=== PATIENT | female | born 1950 | race Caucasian/White ===

== ENCOUNTER 2022-10-13 06:48 | Day surgery (SDC) | payer MEDICARE, OTHER ==
[2022-10-10 15:58] LABS: BASOPHILS # (AUTO) 0.1 X10'3 (0-0.2); BASOPHILS % (AUTO) 1.1 % (0-1); EOSINOPHILS % (AUTO) 0.7 % (0-6); LYMPHOCYTES # (AUTO) 2.5 X10'3 (1.1-4.8); LYMPHOCYTES % (AUTO) 37.4 % (21-51); MEAN CORPUSCULAR HEMOGLOBIN 34.8 PG (27.0-31.0); MEAN CORPUSCULAR HGB CONC 34.6 g/dL (33.0-36.5); MEAN CORPUSCULAR VOLUME 100.5 FL (78-98); MEAN PLATELET VOLUME 7.5 FL (7.4-10.4); MONOCYTES # (AUTO) 0.6 X10'3 (0-0.9); MONOCYTES % (AUTO) 9.6 % (2-12); NEUTROPHILS # (AUTO) 3.5 X10'3 (1.8-7.7); NEUTROPHILS % (AUTO) 51.2 % (42-75); PRE OP HEMATOCRIT 31.9 % (35.0-45.0); PRE OP PLATELET COUNT 332 X10'3 (140-440); RED BLOOD COUNT 3.18 X10'6 (4.20-5.60)
[2022-10-10 16:19] LABS: ALBUMIN 3.7 G/DL (3.4-5.0); ALBUMIN/GLOBULIN RATIO 1.1 (1.1-1.5); ALKALINE PHOSPHATASE 47 IU/L (46-116); BLOOD UREA NITROGEN 14 MG/DL (7-18); BUN/CREATININE RATIO 21.2 (10.0-20.0); CALCIUM 9.2 MG/DL (8.5-10.1); CHLORIDE 93 MMOL/L (99-107); CREATININE 0.66 MG/DL (0.40-0.90); PRE OP ALT 22 U/L (30-65); PRE OP ANION GAP 11 (8-16); PRE OP AST 24 U/L (10-37); PRE OP BILIRUB, TOTAL 0.4 MG/DL (0.0-1.0); PRE OP GLUCOSE 99 MG/DL (70-104); PRE OP POTASSIUM 4.1 MMOL/L (3.4-5.1); TOTAL CARBON DIOXIDE 24.1 MMOL/L (24-32); TOTAL PROTEIN 7.2 G/DL (6.4-8.2); eGFR 88 ML/MIN
[2022-10-10 16:23] LABS: PRE OP SODIUM 128 MMOL/L (135-145)
[~2022-10-13] VITALS: Ht 167.6 cm; Wt 74.0 kg
[2022-10-13] VITALS (7 sets, daily range): BP systolic 131–149; BP diastolic 80–86; PULSE 58–68; RESP 11–16; TEMP 98.1; O2SAT 95–99
[~2022-10-13 06:48] MED LIST: ALPR0.5T8 PO; CHOL10005 PO; CYAN-104 PO; DIPH-735 PO; ESTR1TAB28 PO; FLUT1BLS4 INH; HYDR12.55 PO; KRIL1CAP19 PO; LEVO50TA8 PO; LOSA100T58 PO; MAGN400C PO; MELA5TAB12 PO; OMEP40CA21 PO; PARO20TA6 PO; VITA400T10 PO; cefazolin 2gm/D5W 100mL 100 ML IV ONE; famotidine 20mg tablet PO ONE; ringers solution, lacted 1,000 ML IV SCH; ringers solution, lacted 500 ML IV SCH
[2022-10-13] MEDS ORDERED: labetalol 20mg/4ml (5mg/ml) syringe IV PRN (07:20)
[2022-10-13] MEDS ORDERED: morphine 4 MG/ML inj SYRINge IV PRN (07:20)
[2022-10-13] MEDS ORDERED: ondansetron/PF 4mg/2ml inj IV PRN (07:20)
[2022-10-13] MEDS ORDERED: ringers solution, lacted 1,000 ML IV SCH (07:20)
[2022-10-13] MEDS ORDERED: morphine 2 MG/ML inj. syringe IV PRN (07:20)
[2022-10-13] MEDS ORDERED: LIDOcaine 0.5% (5mg/ml) 50ml vial ONE (09:35)
[2022-10-13] MEDS ORDERED: BUPIVAcaine/PF 2.5 mg/ml (0.25%) 30ml vial ONE (09:35)
[2022-10-13] MEDS ORDERED: midazolam 1 mg/ML 2ml injection ONE (09:35)
[2022-10-13] MEDS ORDERED: fentaNYL/PF 50MCG/1 ML 2ML syringe ONE (09:35)
[2022-10-13] MEDS ORDERED: sevoflurane 250ml liquid IH ONE (09:44)
[2022-10-13] MEDS ORDERED: BUPIVAcaine/PF 2.5 mg/ml (0.25%) 30ml vial IJ ONE (10:10)
--- NOTE | 2022-10-13 10:13 | NUR ---
Received from OR via [facility] TO [facility] 7, accompanied by Anesthesiologist FLETCHER and report given by Anesthesiolgist. PATIENT PRESENTS ON RA WITH SPO2 AT 97%. LR RUNNING THRU PIV IN LEFT WRIST. DRESSING TO RIGHT WRIST IS CDI. ICE APPLIED. PATIENT DOES NOT C/O PAIN OR NAUSEA AT THIS TIME. WILL CONTINUE TO ASSESS.
--- NOTE | 2022-10-13 11:13 | NUR ---
PATIENT STABLE FOR D/C PER MD ORDERS. ALL D/C PPWK WAS REV'D WITH PATIENT. ALL QUESTIONS, COMMENTS, AND CONCERNS WERE ANSWERED AT THIS TIME. EDUCATION ON ICE, ELEVATION, AND MOVING OF FINGERS. SHE VERBALIZED UNDERSTANDING OF ALL. PT WAS ABLE TO AMBULATE SAFELY TO BATHROOM AND BACK WITH MINIMAL ASSISTANCE. DRESSING TO RIGHT WRIST, CDI. PATIENT WAS TAKEN OUT IN W/C TO PRIVATE VEHICLE WHERE FAMILY WAS WAITING. TRANSFERRED TO VEHICLE WITHOUT INCIDENT.
== END 2022-10-13 11:13 | disposition home or self-care (01) ==
LOC: PAS 06:48
PROVIDERS: ATTEND Orthopaedic Surgery Hand Surgery
DX: G56.01 Carpal tunnel syndrome, right upper limb (principal); M18.0 Bilateral primary osteoarthritis of first carpometacarpal joints; J44.9 Chronic obstructive pulmonary disease, unspecified; I10 Essential (primary) hypertension; F41.9 Anxiety disorder, unspecified; F32.A Depression, unspecified; E03.9 Hypothyroidism, unspecified; K21.9 Gastro-esophageal reflux disease without esophagitis; E87.1 Hypo-osmolality and hyponatremia; G44.009 Cluster headache syndrome, unspecified, not intractable; Z88.8 Allergy status to other drugs, medicaments and biological substances; Z90.710 Acquired absence of both cervix and uterus; Z79.899 Other long term (current) drug therapy; Z98.890 Other specified postprocedural states; Z87.891 Personal history of nicotine dependence; F12.90 Cannabis use, unspecified, uncomplicated; Z72.89 Other problems related to lifestyle
CPT/HCPCS: 36415; 64721; 80053; 82948; 85025; 93005; J0690; J2250; J3010; J3490; J7030; J7120; Z7506; Z7512; A4215

== ENCOUNTER 2022-11-07 06:51 | Day surgery (SDC) | payer MEDICARE, OTHER ==
[2022-11-03 14:44] LABS: BASOPHILS # (AUTO) 0.1 X10'3 (0-0.2); BASOPHILS % (AUTO) 0.8 % (0-1); EOSINOPHILS # (AUTO) 0.1 X10'3 (0-0.9); EOSINOPHILS % (AUTO) 1.1 % (0-6); LYMPHOCYTES # (AUTO) 2.4 X10'3 (1.1-4.8); MEAN CORPUSCULAR HEMOGLOBIN 34.9 PG (27.0-31.0); MEAN CORPUSCULAR HGB CONC 34.6 g/dL (33.0-36.5); MEAN CORPUSCULAR VOLUME 101.1 FL (78-98); MEAN PLATELET VOLUME 7.6 FL (7.4-10.4); MONOCYTES # (AUTO) 0.6 X10'3 (0-0.9); MONOCYTES % (AUTO) 8.5 % (2-12); NEUTROPHILS # (AUTO) 4.4 X10'3 (1.8-7.7); NEUTROPHILS % (AUTO) 57.6 % (42-75); PRE OP HEMATOCRIT 28.6 % (35.0-45.0); PRE OP PLATELET COUNT 297 X10'3 (140-440); PRE OP WHITE BLOOD COUNT 7.6 10'3 (4.8-10.8); RED BLOOD COUNT 2.83 X10'6 (4.20-5.60); RED CELL DISTRIBUTION WIDTH 12.6 % (11.5-14.5)
[2022-11-03 14:46] LABS: PRE OP HEMOGLOBIN 9.9 g/dL (12.0-16.0)
[2022-11-03 14:57] LABS: ALBUMIN 3.6 G/DL (3.4-5.0); ALBUMIN/GLOBULIN RATIO 1.2 (1.1-1.5); ALKALINE PHOSPHATASE 46 IU/L (46-116); BLOOD UREA NITROGEN 17 MG/DL (7-18); BUN/CREATININE RATIO 21.8 (10.0-20.0); CALCIUM 8.6 MG/DL (8.5-10.1); CHLORIDE 91 MMOL/L (99-107); CREATININE 0.78 MG/DL (0.40-0.90); PRE OP ALT 28 U/L (30-65); PRE OP ANION GAP 9 (8-16); PRE OP AST 25 U/L (10-37); PRE OP BILIRUB, TOTAL 0.4 MG/DL (0.0-1.0); PRE OP GLUCOSE 96 MG/DL (70-104); PRE OP POTASSIUM 4.4 MMOL/L (3.4-5.1); TOTAL CARBON DIOXIDE 25.4 MMOL/L (24-32); TOTAL PROTEIN 6.6 G/DL (6.4-8.2); eGFR 73 ML/MIN
[2022-11-03 14:58] LABS: PRE OP SODIUM 125 MMOL/L (135-145)
[~2022-11-07] VITALS: Ht 167.6 cm; Wt 72.6 kg
[2022-11-07] VITALS (8 sets, daily range): BP systolic 124–137; BP diastolic 68–85; PULSE 57–64; RESP 10–16; TEMP 98.7; O2SAT 92–100
[~2022-11-07 06:51] MED LIST changes: +BUPIVAcaine/PF 2.5mg/ml (0.25%) 10ml vial ONE; -ringers solution, lacted 500 ML IV SCH
[2022-11-07] MEDS ORDERED: ondansetron/PF 4mg/2ml inj IV PRN (08:45)
[2022-11-07] MEDS ORDERED: hydrALAZINE 20mg/ml inj. IV PRN (08:45)
[2022-11-07] MEDS ORDERED: morphine 4 MG/ML inj SYRINge IV PRN (08:45)
[2022-11-07] MEDS ORDERED: labetalol 20mg/4ml (5mg/ml) syringe IV PRN (08:45)
[2022-11-07] MEDS ORDERED: ringers solution, lacted 1,000 ML IV SCH (08:45)
[2022-11-07] MEDS ORDERED: morphine 2 MG/ML inj. syringe IV PRN (08:45)
[2022-11-07] MEDS ORDERED: BUPIVAcaine/PF 2.5mg/ml (0.25%) 10ml vial IJ ONE (09:30)
[2022-11-07] MEDS ORDERED: fentaNYL/PF 50MCG/1 ML 2ML syringe ONE (09:36)
[2022-11-07] MEDS ORDERED: midazolam 1 mg/ML 2ml injection ONE ×2 (09:36)
[2022-11-07] MEDS ORDERED: ceFAZolin 1000mg inj ONE ×2 (09:57)
--- NOTE | 2022-11-07 10:15 | NUR ---
Received from OR via [facility] IN STABLE CONDITION , accompanied by Anesthesiologist and SHRIMP PEELING MACHINE OPERATOR report given by SHRIMP PEELING MACHINE OPERATOR AND Anesthesiologist. Addendum: 11/07/22 at 1048 by Sakina Garrido RN Amended: Links added.
--- NOTE | 2022-11-07 11:25 | NUR ---
PATIENT DISCHARGED FROM PACU IN STABLE CONDITION AFTER WRITTEN AND VERBAL DISCHARGE INSTRUCTIONS GIVEN. PATIENT GAVE VERBAL UNDERSTANDING OF INSTRUCTIONS GIVEN. PATIENT LEFT FACILITY VIA WHEELCHAIR WITH RN. Addendum: 11/07/22 at 1131 by Sakina Garrido RN Amended: Links added.
== END 2022-11-07 11:25 | disposition home or self-care (01) ==
LOC: PAS 06:51
PROVIDERS: ATTEND Orthopaedic Surgery Hand Surgery
DX: G56.02 Carpal tunnel syndrome, left upper limb (principal); M18.0 Bilateral primary osteoarthritis of first carpometacarpal joints; F41.9 Anxiety disorder, unspecified; J44.9 Chronic obstructive pulmonary disease, unspecified; I10 Essential (primary) hypertension; F32.A Depression, unspecified; E03.9 Hypothyroidism, unspecified; K21.9 Gastro-esophageal reflux disease without esophagitis; E87.1 Hypo-osmolality and hyponatremia; G44.009 Cluster headache syndrome, unspecified, not intractable; Z79.899 Other long term (current) drug therapy; Z98.890 Other specified postprocedural states; Z87.891 Personal history of nicotine dependence; Z72.89 Other problems related to lifestyle; F12.90 Cannabis use, unspecified, uncomplicated; Z90.710 Acquired absence of both cervix and uterus; Z88.8 Allergy status to other drugs, medicaments and biological substances
CPT/HCPCS: 36415; 64721; 80053; 82948; 85025; J0690; J2250; J3010; J3490; J7030; J7120; Z7506; Z7512; A4215